=== PATIENT | male | born 1990 | race African-American/Black ===

== ENCOUNTER 2019-03-14 22:05 | Emergency (ER) | payer SELFPAY ==
[~2019-03-14] VITALS: Ht 170.2 cm; Wt 104.3 kg
--- NOTE | 2019-03-14 22:26 | NUR ---
BIBSELF C/O CP X8HR. +SOB, +NONPRODUCTIVE COUGH, +NAUSEA, +HEADACHE. PT STATES HE WAS USING MULTIPLE CLEANING PRODUCTS WHEN FEELING SYMPTOMS. DENIES USING PROTECTIVE GEAR OR BEING IN WELL-VENTILATED AREA DURING CLEANING. QUALITY OF CHEST PAIN IS BURNING AND 9/10. GIRLFRIEND AT BEDSIDE. READY FOR EVAL.
--- NOTE | 2019-03-14 22:46 | NUR ---
DR HOLLAND AT BEDSIDE FOR EVAL
[2019-03-14] MEDS ORDERED: LIDOCAINE 4% PF AMPUL 40 MG/ML AMPUL ONE (22:55)
[2019-03-14] MEDS ORDERED: ALBUTEROL FS 2.5 MG/3 ML VIAL.NEB NEB ONE (23:00)
[2019-03-14] MEDS ORDERED: LIDOCAINE SOLN 4% 50 ML BOTTLE TP ONE (23:00)
[2019-03-14] MEDS ORDERED: ALBUTEROL FS 2.5 MG/3 ML VIAL.NEB ONE (23:01)
--- NOTE | 2019-03-14 23:02 | NUR ---
RT AT BEDSIDE FOR BREATHING TX
[2019-03-14 23:28] VITALS: BP 126/75
--- NOTE | 2019-03-14 23:35 | NUR ---
Patient discharged to home in stable condition. Written and verbal after care instructions given. Patient verbalizes understanding of instruction.
== END 2019-03-14 23:39 | disposition home or self-care (01) ==
LOC: ER 22:09
DX: J68.0 Bronchitis and pneumonitis due to chemicals, gases, fumes and vapors (principal); I51.7 Cardiomegaly; Z98.890 Other specified postprocedural states
CPT/HCPCS: 71045; 93005; 94640; 99283; J3490